=== PATIENT | female | born 1985 | race American Indian/Alaskan Native ===

== ENCOUNTER 2019-02-16 11:39 | Emergency (ER) | payer MEDICAID ==
[2019-02-16 11:56] VITALS: BP 141/67
--- NOTE | 2019-02-16 12:02 | Emergency Department Report ---
Blank Doc - Documentation Documentation: 33 Y/O HIGH RISK FEMALE PRESENTS TO ED C/O OF SUDDEN ONSET OF PELVIC PAIN. NO BLEEDING. HISTORY OF INCOMPENTENT CERVIX AND WORRIED OF HAVING AN EPISODE. SHE HAS NOT YET SEEN HIGH RISK FOR HER CERCLAGE PLAN US AND LABS POSSIBEL PELVIC EXAM.
[2019-02-16 14:29] LABS: Bilirubin,Urine NEG (Negative); Blood,Urine NEG (Negative); Color,Urine Yellow (Yellow); Mucus,Urine FEW /HPF; Protein,Urine <15 mg/dL mg/dL (Negative); Urobilinogen,Urine < 2.0 mg/dL (<2.0)
--- NOTE | 2019-02-16 16:21 | Ultrasound Report ---
PROCEDURE: US OB >= 14 WEEKS FETUS TECHNIQUE: Obstetric ultrasound was performed. HISTORY: 18 weeks and vaginal bleeding COMPARISONS: None. FINDINGS: There is a single live intrauterine . heart rate is 154 bpm. The cervical length is 5.1 cm. Biparietal diameter is 3.2 cm, corresponding to a gestational age of 16 weeks, 0 days. Head circumference 11.37 mm, corresponding to a gestational age of 15 weeks, 4 days. Abdominal circumference is 9.5 cm, corresponding to a gestational age of 15 weeks, 4 days Femoral length is 1.6 cm, corresponding to a gestational age of 14 weeks, 5 days. Composite gestational age by ultrasound is 15 weeks, 3 days, with estimated date of delivery of 08/07. There is a posterior, grade 0 placenta. There is a hypoechoic hypervascular area under the placenta t hat measures a proximally 5.2 cm. IMPRESSION: Single live intrauterine with composite gestational age by ultrasound 15 weeks, 3 days, wit h estimated date of delivery of 08/07/2019. Hypervascular area under the placenta that measures approximately 5.2 cm. Differential diagnosis incl udes venous lakes and granuloma. Recommend attention on follow-up imaging. This document is electronically signed by Claudette Winston MD., February 16 2019 04:19:18 PM ET
--- NOTE | 2019-02-16 16:22 | Emergency Department Report ---
ED HPI - General Chief complaint: Abdominal Pain Stated complaint: 16 WEEKS /ABD PAIN Time Seen by Provider: 02/16/19 11:59 Source: patient Mode of arrival: Ambulatory Limitations: No Limitations - History of Present Illness Initial comments: Patient is a 33-year-old female who over the last 2-3 days as developed some lower back pain and abdominal tightness. Patient states she is roughly 15 weeks . Patient has seen her [facility] DIS[facility]LED [facility]. Patient had a a Doppler of the baby's heartbeat done approximately 2 weeks however she has not had ultrasound. Patient states she has some urinary frequency but no dysuria she denies any vaginal discharge this time. Patient also has no nausea vomiting diarrhea fevers chills, cold or congestion. Patient states the pain is crampy and tight and is a 6 out of 10 in severity. - Related Data Allergies Allergy/AdvReac Type Severity Reaction Status Date / Time amoxicillin [From Augmentin] Allergy Swelling Verified 02/16/19 11:42 clavulanic acid Allergy Swelling Verified 02/16/19 11:42 [From Augmentin] ibuprofen [From Motrin] Allergy Swelling Verified 02/16/19 11:42 shrimp Allergy Swelling Verified 02/16/19 11:42 ED Review of Systems ROS: Stated complaint: 16 WEEKS /ABD PAIN Other details as noted in HPI Comment: All other systems reviewed and negative ED Past Medical Hx - Past Medical History Previous Medical History?: No - Surgical History Past Surgical History?: Yes Additional Surgical History: - Social History Smoking Status: Never Smoker Substance Use Type: None ED Physical Exam - General Limitations: No Limitations General appearance: alert, in no apparent distress - Head Head exam: Present: atraumatic, normocephalic - Eye Eye exam: Present: normal appearance - ENT ENT exam: Present: mucous membranes moist - Neck Neck exam: Present: normal inspection - Respiratory Respiratory exam: Present: normal lung sounds bilaterally. Absent: respiratory distress, wheezes, rales, rhonchi - Cardiovascular Cardiovascular Exam: Present: regular rate, normal rhythm. Absent: systolic murmur, diastolic murmur, rubs, gallop - GI/Abdominal GI/Abdominal exam: Present: soft, normal bowel sounds. Absent: distended, tenderness, guarding, rebound - Extremities Exam Extremities exam: Present: normal inspection - Back Exam Back exam: Present: normal inspection - Neurological Exam Neurological exam: Present: alert, oriented X3 - Psychiatric Psychiatric exam: Present: normal affect, normal mood - Skin Skin exam: Present: warm, dry, intact, normal color. Absent: rash ED Course Vital Signs 02/16/19 11:52 Temperature 97.7 F Pulse Rate 94 H Respiratory 16 Rate Blood Pressure 141/67 [Left] O2 Sat by Pulse 98 Oximetry ED Medical Decision Making - Lab Data Lab Results 02/16/19 02/16/19 Range/Units 12:05 14:16 HCG, Quant 26680 H (0-4) mIU/mL Urine Color Yellow (Yellow) Urine Turbidity Clear (Clear) Urine pH 6.0 (5.0-7.0) Ur Specific [place] 1.024 (1.003-1.030) Urine Protein <15 mg/dl (Negative) mg/dL Urine Glucose (UA) Neg (Negative) mg/dL Urine Ketones Neg (Negative) mg/dL Urine Blood Neg (Negative) Urine Nitrite Neg (Negative) Urine Bilirubin Neg (Negative) Urine Urobilinogen < 2.0 (<2.0) mg/dL Ur Leukocyte Esterase Neg (Negative) Urine WBC (Auto) 2.0 (0.0-6.0) /HPF Urine RBC (Auto) 3.0 (0.0-6.0) /HPF U Epithel Cells (Auto) 1.0 (0-13.0) /HPF Urine Mucus Few /HPF - Radiology Data Radiology results: image reviewed (patient has a viable IUP. Patient's cervix is approximate 5 cm.) - Medical Decision Making Patient likely with round ligament pain. Patient will be discharged home. Critical care attestation.: If time is entered above; I have spent that time in minutes in the direct care of this critically ill patient, excluding procedure time. ED Disposition Clinical Impression: Abdominal pain affecting Disposition: DC-01 TO HOME OR SELFCARE Is pt being admited?: No Does the pt Need Aspirin: No Condition: Stable Instructions: Abdominal Pain (ED), (ED) Time of Disposition: 16:23
== END 2019-02-16 16:25 | disposition home or self-care (01) ==
LOC: ED 11:39
DX: O26.892 Other specified pregnancy related conditions, second trimester (principal); R10.9 Unspecified abdominal pain; Z3A.15 15 weeks gestation of pregnancy
CPT/HCPCS: 36415; 76805; 81001; 84702

== ENCOUNTER 2019-07-06 22:46 | Outpatient (CLI) | payer MEDICAID ==
[2019-07-06 23:07] VITALS: BP 126/57
[2019-07-06 23:35] LABS: Bacteria,Urine 2+ /HPF (Negative); Bilirubin,Urine NEG (Negative); Blood,Urine NEG (Negative); Color,Urine Yellow (Yellow); Mucus,Urine FEW /HPF; Protein,Urine <15 mg/dL mg/dL (Negative); Urobilinogen,Urine < 2.0 mg/dL (<2.0)
== END 2019-07-07 00:46 | disposition home or self-care (01) ==
LOC: TRG 22:46
PROVIDERS: ATTEND Obstetrics & Gynecology
DX: O26.893 Other specified pregnancy related conditions, third trimester (principal); O47.03 False labor before 37 completed weeks of gestation, third trimester; R10.30 Lower abdominal pain, unspecified
CPT/HCPCS: 59025; 81001